=== PATIENT | female | born 1945 | race Caucasian/White ===

== ENCOUNTER 2021-11-24 10:13 | Outpatient (REF) | payer OTHER, SELFPAY ==
[2021-11-24 12:06] LABS: HIV AB/AG Nonreactive (Nonreactive); HIV Num 1 0.08 S/CO (0.00-0.99)
[2021-11-24 12:09] LABS: Anion Gap 15 (12-20); Blood Urea Nitrogen 27 mg/dL (9-16); Calcium 9.5 mg/dL (8.4-10.2); Carbon Dioxide 26 mmol/L (22-29); Chloride 97 mmol/L (96-108); Estimated Glomerular Filt Rate 57; Glucose Fasting 95 mg/dL (60-99); Potassium 4.1 mmol/L (3.3-5.1); Rheumatoid Factor < 15.0 IU/mL (<15.0); Sodium 134 mmol/L (135-145)
[2021-11-24 12:14] LABS: Syphilis Screen Nonreactive (Nonreactive)
[2021-11-24 15:17] LABS: Erythrocyte Sedimentation Rate 17 MM/HR (0-20)
[2021-11-26 02:25] LABS: Lyme Abs Screen <0.90 index
[2021-11-27 13:12] LABS: IgA 229 mg/dL (70-320); IgG 951 mg/dL (600-1540); IgM 74 mg/dL (50-300)
== END 2021-11-24 10:14 | disposition home or self-care (01) ==
LOC: HO.LAB 10:13
PROVIDERS: PCP Internal Medicine; Visit Provider Psychiatry & Neurology Neurology
DX: Z11.4 Encounter for screening for human immunodeficiency virus [HIV] (principal); G62.9 Polyneuropathy, unspecified
CPT/HCPCS: 36415; 80048; 82784; 85652; 86334; 86431; 86617; 86618; 86780; 87389